=== PATIENT | male | born 1950 | race Caucasian/White ===

== ENCOUNTER 2017-06-10 10:08 | Day surgery (SDC) | payer OTHER ==
[2017-06-09 08:54] VITALS: BMI 26.6
--- NOTE | 2017-06-10 09:29 | HP ---
[facility] - Chief Complaint Chief Complaint: right shoulder pain - Past Medical History Allergies/Adverse Reactions: Allergies Allergy/AdvReac Type Severity Reaction Status Date / Time No Known Allergies Allergy Verified 06/09/17 08:54 - Current Medications Current Medications: Home Medications Medication Instructions Recorded Hydrocodone/Acetaminophen [[place] 1 each PO Q6H PRN #40 tablet MDD 4 06/10/17 5-325 Tablet] NK [No Known Home Medication] 06/10/17 [facility] Physical Exam - Physical Examination General Appearance: Well Nourished, Well Developed, Alert & Oriented x3 ENT: Clear Lung: Normal air movement Heart: Regular rate & rhythm Extremities: Other (right shoulder- + ttp, decr rom, + neer,+kerr, +empty can , nvi MRI + RCT) Neurological: Intact, Alert, Oriented [facility] Impression/Plan - Impression/Plan Impression: right shoulder impingement, rct Operative Procedure: right shoulder arthroscopy SAD possible RCR Date to be Performed: 06/10/17
[2017-06-10] MEDS ORDERED: PROPOFOL 20 ML ONE (11:22)
[2017-06-10] MEDS ORDERED: ePHEDrine SULFATE 50 MG/1 ML AMPULE ONE (11:26)
[2017-06-10] MEDS ORDERED: SODIUM CHLORIDE 0.9% P/F 10 ML VIAL IJ ONE ×2 (11:27→12:23)
[2017-06-10] MEDS ORDERED: ceFAZolin SODIUM 1 GM VIAL ONE (12:22)
[2017-06-10] MEDS ORDERED: MIDAZOLAM HCL 2 MG/2 ML SINGLE DOSE VIAL ONE ×2 (12:24)
[2017-06-10] MEDS ORDERED: ceFAZolin SODIUM 1 GM VIAL IVPB ONE (13:00)
--- NOTE | 2017-06-10 14:27 | OP ---
Operative Note - Note: Operative Date: 06/10/17 ([facility]) Pre-Operative Diagnosis: right shoulder rct Operation: right shoulder arthroscopy with mini-open RCR, SAD, DCE Implants: 2 arthrex swivelocks Post-Operative Diagnosis: Same as Pre-op Surgeon: Rios Maurice Solutions Manager: Trever Begum Anesthesiologist/SOD FARMER: Filipe Shirley Anesthesia: General, Local Specimens Removed: shavings Estimated Blood Loss (mls): 25 Operative Report Dictated: Yes
[2017-06-10 15:26] VITALS: TEMP 97.5
[2017-06-10] MEDS ORDERED: PROMETHAZINE HCL 25 MG/1 ML VIAL IVPUSH PRN (15:29)
[2017-06-10] MEDS ORDERED: ONDANSETRON 4 MG/2 ML VIAL IVPUSH PRN (15:29)
[2017-06-10] MEDS ORDERED: oxyCODONE HCL 5 MG TABLET PO PRN (15:29)
[2017-06-10] MEDS ORDERED: LACTATED RINGERS SOLUTION 1,000 ML IV SCH (15:30)
[2017-06-10 17:23] VITALS: BP 121/67; PULSE 90
--- NOTE | 2017-06-11 08:34 | OP ---
DATE OF OPERATION: 06/10/2017 PREOPERATIVE DIAGNOSES: Right shoulder impingement syndrome, acromioclavicular joint arthritis, and rotator cuff tear. POSTOPERATIVE DIAGNOSES: Right shoulder impingement syndrome, acromioclavicular joint arthritis, and rotator cuff tear. PROCEDURE: Right shoulder arthroscopy, subacromial decompression, distal clavicle excision, and mini-open rotator cuff repair. SURGEON: Bhavani Lane MD TWISTER FRAME TENDER: AMMY Parnell ANESTHESIOLOGIST: Filipe Shirley MD; right interscalene block. DRAINS: None. COMPLICATIONS: None. BLOOD LOSS: 50 mL BLOOD GIVEN: None. FLUID REPLACEMENT: 1000 mL INDICATION FOR PROCEDURE: This patient is a 66-year-old [id number] male who has a preoperative diagnosis of right shoulder subacromial impingement, AC joint arthritis, and a rotator cuff tear. After understanding the potential risks, complications, alternatives, and benefits of surgery versus nonsurgical treatment, the patient elected to undergo this procedure. DESCRIPTION OF PROCEDURE: Patient was brought to the operating room, peripheral IV placed, IV sedation given. One gram of IV Ancef was given. A right interscalene block was performed. He was placed in the beach chair position with ample padding throughout. The right upper extremity was prepped and draped in sterile fashion. The bony landmarks were marked out with a marking pen, and a posterior portal was established. An arthroscope was introduced in the shoulder joint, and a diagnostic arthroscopy was performed. Patient was seen to have a lot of intraarticular synovitis. The labrum looked good. There was no glenohumeral arthritis. He had a high-riding humeral head. The biceps tendon was subluxed inferiorly because of that. There was an obvious full-thickness rotator cuff tear, crescent shaped of the supraspinatus in the mid and anterior portion. The arthroscope was then introduced into the subacromial space. A lateral portal was established under direct visualization using a spinal needle. A number-15 scalpel blade was used to cut the skin, and a green cannula introduced in the subacromial space. The patient had a tremendous amount of soft tissue bursitis. A soft tissue bursectomy/extensive debridement was done with the ArthroCare wand. This revealed a mid and anterior supraspinatus complete rotator cuff tear from the top portion. It was also crescent shaped and mildly delaminated. The tear was cleaned up with the ArthroCare wand. A shaver was used to remove the debris. Once the soft tissue bursectomy was performed, it revealed an extremely large, bony subacromial spur and subclavicular spur. A subacromial bony decompression was performed with a 5.5-mm oval bur of the spur and the undersurface of the acromion as well as distal clavicle. It was fine tuned in reverse. Shaver was introduced into the space to remove all bony debris. Overall decompression looked good. It was a huge spur, and now, there was adequate space. Next, under direct visualization using the EqualEyes needle passer, we passed 5 FiberWire sutures through the rotator cuff. Next, we converted to a mini-open approach. The arthroscope was removed. Lateral portal incision was extended by approximately 2 inches. Subcutaneous hemostasis was achieved with the Bovie cautery. Dissection was done through the deltoid. It was split longitudinally as not to cut any of its fibers. A Henly retractor was placed deep into the wound. An additional open bursectomy was done with the Bovie cautery. We were able to further mobilize the rotator cuff tear using a Boswell elevator. Overall, a good portion of the head was covered. The rotator cuff that was intact looked good. I think it was a tear from this large subacromial spur. We were able to bring it down, pulling on the FiberWire sutures. Next, in the standard fashion, I put in 2 Arthrex SwiveLock anchors, 4 tails going through the posterior SwiveLock and 6 tails through the anterior SwiveLock. Overall, it brought the rotator cuff tear down quite nicely. There was complete coverage of the humeral head. It all moved as a unit. The area was copiously irrigated and washed out. The deep deltoid fascial layer closed with 0 Vicryl suture; 2-0 Vicryl was used to close the deep dermal layer. Final skin reapproximation was done with a running subcuticular 3-0 V-Loc suture. It was then covered with SwiftSet glue, Aquacel dressing, and the posterior portal was closed with one 3-0 nylon suture. This was covered with a 4-inch Aquacel dressing. Total operative time was about 1 hour. There were no complications during the case. Blood loss was 50 mL. A shoulder immobilizer was applied. There were no complications. He tolerated the procedure quite well and was brought to the ambulatory recovery room in stable condition. BHAVANI LANE M.D. [id number]
--- NOTE | 2017-06-12 15:48 | PATH ---
Surgical Pathology Report Patient Name: RICKI STALEY [facility]. Rec. #: [id number] /Age/Gender: 1950 (Age: 66) / M Account: [id number] Location: [facility] SURGICAL Taken: 06/10/2017 Received: 06/11/2017 Reported: 06/12/2017 Physicians: Rios Maurice M.D. Specimen(s) Received SHAVINGS RIGHT SHOULDER Clinical History Right shoulder impingement syndrome Final Diagnosis RIGHT SHOULDER, ARTHROSCOPIC SHAVING: PORTIONS OF SYNOVIUM, CARTILAGE, SKELETAL MUSCLE AND BONE CONSISTENT WITH ARTHROSCOPIC SHAVINGS. Electronically Signed Geovanny Lee M.D. Gross Description Received in formalin, labeled "right shoulder shavings," is a 4.3 x 3.5 x 0.7 cm. aggregate of lozoya-yellow soft tissue fragments. A inbound customer service representative portion is submitted in one cassette. /06/11/201706/11/2017
== END 2017-06-10 17:15 | disposition home or self-care (01) ==
LOC: JASU-SURG 10:08
PROVIDERS: ATTEND Orthopaedic Surgery
PROC: 0PB94ZZ Excision of Right Clavicle, Percutaneous Endoscopic Approach (ICD-10-PCS; 2017-06-10)
PROC: 0LQ10ZZ Repair Right Shoulder Tendon, Open Approach (ICD-10-PCS; 2017-06-10)
PROC: 0RBJ4ZZ Excision of Right Shoulder Joint, Percutaneous Endoscopic Approach (ICD-10-PCS; principal; 2017-06-10 12:00)
DX: M75.41 Impingement syndrome of right shoulder (principal); M19.011 Primary osteoarthritis, right shoulder; M75.101 Unspecified rotator cuff tear or rupture of right shoulder, not specified as traumatic
CPT/HCPCS: 88304-TC; 94760